=== PATIENT | female | born 1945 | race Caucasian/White ===

== ENCOUNTER → 2017-01-25 | Outpatient (CLI) | payer MEDICARE ==
--- NOTE | 2017-01-29 09:54 | MM ---
Reason for exam: screening (asymptomatic). Last mammogram was performed 1 year ago. History: Patient is postmenopausal. Benign MG stereo VAD BX LT of the left breast, August 17, 2014. Physical Findings: A clinical breast exam by your physician is recommended on an annual basis and results should be correlated with mammographic findings. MG 3D Screening Mammo W/Cad Bilateral CC and MLO view(s) were taken. Prior study comparison: January 24, 2016, bilateral MG 3d diag mammo w/cad JESUS. February 23, 2015, left breast MG diagnostic mammo LT w CAD. There are scattered fibroglandular densities. Previous mammotome biopsy within the left breast times 2. No significant changes when compared with prior studies. ASSESSMENT: Negative, BI-RAD 1 RECOMMENDATION: Routine screening mammogram of both breasts in 1 year.
== END ==
LOC: RADMAMWWP 08:09
PROVIDERS: ATTEND Family Medicine
DX: Z12.31 Encounter for screening mammogram for malignant neoplasm of breast (principal)
CPT/HCPCS: 77063; G0202

== ENCOUNTER → 2018-02-13 | Outpatient (CLI) | payer MEDICARE ==
--- NOTE | 2018-02-18 13:33 | MM ---
Reason for exam: screening (asymptomatic). Last mammogram was performed 1 year and 1 month ago. History: Patient is postmenopausal. Benign MG stereo VAD BX LT of the left breast, August 17, 2014. Physical Findings: A clinical breast exam by your physician is recommended on an annual basis and results should be correlated with mammographic findings. MG 3D Screening Mammo W/Cad Bilateral CC and MLO view(s) were taken. Prior study comparison: January 25, 2017, bilateral MG 3d screening mammo w/cad. January 24, 2016, bilateral MG 3d diag mammo w/cad JESUS. The breast tissue is heterogeneously dense. This may lower the sensitivity of mammography. Finding: There is a new 4 mm mass located 9 cm from the nipple in the lower quadrant, anterior position on ML view. Previous mammotome biopsy in the left breast x 2. New finding since January 25, 2017 and January 24, 2016. ASSESSMENT: Incomplete: need additional imaging evaluation, BI-RAD 0 RECOMMENDATION: Special view mammogram of the left breast. If lesion persists on supplemental views, image directed ultrasound is recommended. [facility] will attempt to contact patient to return for supplemental views and ultrasound if indicated.
== END | disposition home or self-care (01) ==
LOC: RADMAMWWP 14:55
PROVIDERS: ATTEND Family Medicine
DX: Z12.31 Encounter for screening mammogram for malignant neoplasm of breast (principal)
CPT/HCPCS: 77063; 77067

== ENCOUNTER → 2018-02-21 | Outpatient (CLI) | payer MEDICARE ==
--- NOTE | 2018-02-22 07:54 | MM ---
Reason for exam: additional evaluation requested from abnormal screening. Last mammogram was performed less than 1 month ago. History: Patient is postmenopausal. Benign MG stereo VAD BX LT of the left breast, August 17, 2014. Physical Findings: Nurse did not find any significant physical abnormalities on exam. MG 3D Work Up W/Cad LT LM and spot compression MLO view(s) were taken of the left breast. Prior study comparison: February 13, 2018, bilateral MG 3d screening mammo w/cad. January 25, 2017, bilateral MG 3d screening mammo w/cad. No distinct lesion persists on additional views. These results were verbally communicated with the patient and result sheet given to the patient on 02/21/18. ASSESSMENT: Benign, BI-RAD 2 RECOMMENDATION: Return to routine screening mammogram schedule for both breasts.
== END | disposition home or self-care (01) ==
LOC: RADMAMWWP 14:49
PROVIDERS: ATTEND Family Medicine
DX: R92.8 Other abnormal and inconclusive findings on diagnostic imaging of breast (principal)
CPT/HCPCS: 77065; G0279; 77061

== ENCOUNTER → 2018-05-17 | Outpatient (CLI) | payer MEDICARE, OTHER ==
--- NOTE | 2018-05-18 15:49 | MR ---
EXAMINATION TYPE: MR brain/cspine wo DATE OF EXAM: 05/17/2018 COMPARISON: 06/07/2012 HISTORY: Essential tremor / Cervicalgia CONTRAST: Performed utilizing mL intravenous gadolinium contrast. TECHNIQUE: Multiplanar, multiecho imaging on a 3.0 Jennie magnet is performed through the brain. Stud y is performed within 24 hours of arrival to the hospital. The craniovertebral junction is normal. The pituitary is normal. Diffusion-weighted imaging is performed. No abnormal hyperintensity is present to suggest an acute i ntracranial infarct or acute ischemic change. There is increased signal within the brainstem may be some microvascular ischemic type changes. This is greater within the brainstem than in the periventricular white matter. Findings were present previ ously with some progression over the interval. Ventricles and sulci are somewhat prominent for the patient age. No significant temporal horn dilat ation is evident. Internal auditory canals appear unremarkable. Cerebellar pontine angles are normal. Normal vascular f low voids are present. IMPRESSIONS: 1. Increasing microvascular ischemic type changes within the brainstem with some developing periventr icular white matter chronic appearing ischemic changes from 2011. EXAMINATION TYPE: MR brain/cspine wo DATE OF EXAM: 05/17/2018 COMPARISON: None HISTORY: Essential tremor / Cervicalgia CONTRAST: Performed utilizing 0 mL intravenous Gadavist gadolinium contrast. TECHNIQUE: Multiplanar multiecho imaging on a 3.0 Jennie magnet is performed through the cervical spin e. FINDINGS: The craniovertebral junction is normal. Vertebral body alignment is normal. C7-T1: No focal disc herniation or significant disc bulge is evident. No spinal canal stenosis or n eural foraminal stenosis is present. C6-7: Disc space narrowing is present C6-7. Some endplate disc bulge may have mild anterior thecal sa c flattening. This comes in close approximation with spinal cord. No spinal canal stenosis is present . Mild foraminal narrowing is present.. C5-6: There is mild disc bulge with anterior thecal sac flattening. No cord contact is evident. No sp inal canal stenosis present. Mild left foraminal narrowing is present. C4-5: Broad-based disc bulge is present. There is a small focal protrusion which has contact with the spinal cord. No spinal canal stenosis is present. Minimal signal change posterior to the C4 spinal c ord may be present. C3-4: Broad-based disc bulge is present. This slightly greater into the right paracentral region. Thi s has anterior thecal sac contact without cord compression. No spinal canal stenosis is present. Mild left foraminal narrowing is present.. C2-3: No focal disc herniation or significant disc bulge is evident. No spinal canal stenosis or juan ral foraminal stenosis is present. IMPRESSIONS: 1. 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 Signal abnormalities just proximal to this level is in the spina l cord on sagittal T2-weighted images. 2. Additional smaller disc bulges with anterior thecal sac contact. Some cord contact may be present or close approximation at C6-7.
== END | disposition home or self-care (01) ==
LOC: RADMRIMAIN 12:56
PROVIDERS: ATTEND Psychiatry & Neurology Neurology
DX: M50.221 Other cervical disc displacement at C4-C5 level (principal); I67.82 Cerebral ischemia
CPT/HCPCS: 70551; 72141

== ENCOUNTER → 2019-02-26 | Outpatient (CLI) | payer MEDICARE, OTHER ==
--- NOTE | 2019-02-26 14:25 | MM ---
Reason for exam: screening (asymptomatic). Last mammogram was performed 1 year ago. History: Patient is postmenopausal. Benign MG stereo VAD BX LT of the left breast, August 17, 2014. Physical Findings: A clinical breast exam by your physician is recommended on an annual basis and results should be correlated with mammographic findings. MG 3D Screening Mammo W/Cad Bilateral CC and MLO view(s) were taken. Prior study comparison: February 21, 2018, left breast MG 3d work up w/cad LT. February 13, 2018, bilateral MG 3d screening mammo w/cad. The breast tissue is heterogeneously dense. This may lower the sensitivity of mammography. Benign appearing bilateral calcifications. Previous mammotome biopsy in the left breast. No significant changes when compared with prior studies. ASSESSMENT: Benign, BI-RAD 2 RECOMMENDATION: Routine screening mammogram of both breasts in 1 year.
== END | disposition home or self-care (01) ==
LOC: RADMAMWWP 10:23
PROVIDERS: ATTEND Family Medicine
DX: Z12.31 Encounter for screening mammogram for malignant neoplasm of breast (principal)
CPT/HCPCS: 77063; 77067

== ENCOUNTER → 2020-02-26 | Outpatient (CLI) | payer MEDICARE, OTHER ==
--- NOTE | 2020-02-26 16:48 | CONS ---
CONSULTATION DATE OF SERVICE: 02/26/2020 A 74-year-old lady who has been evaluated in the [facility] for significant excessive daytime sleepiness. [place] Sleepiness Scale today is 23. HISTORY OF PRESENT ILLNESS/SLEEP-WAKE EVALUATION: Patient has history of obstructive sleep apnea for more than 10 years, did not have sleep study since that time. She continued to use her CPAP equipment, but even while using her CPAP, she continued to feel sleepy during the day. Her sleep schedule from 10 pm from 10 -:12 am. No problems with falling asleep, although she will watch TV in bedroom. She usually sleeps in the back and side position. She wakes up from sleep 2 times with one episode of nocturia. No history of hypnagogic hallucinations or sleep paralysis. In the morning, patient wakes up tired, has difficulties to pay attention, falling asleep during the day, has problems with memory, concentration, and depression. [place] Sleepiness Scale again is in extremely high range of 23. PAST MEDICAL HISTORY: Positive for acid reflux, hyperlipidemia, diabetes mellitus, depression, memory problems. PAST SURGICAL HISTORY: D and C. SOCIAL HISTORY: Negative for smoking or using alcohol. REVIEW OF SYSTEMS: Significant excessive daytime sleepiness. MEDICATIONS: Omeprazole, simvastatin, Amaryl, metformin, Synthroid, dicyclomine, Antivert, Metamucil, Claritin, Aricept, Prozac, Hyzaar, oxybutynin, Remidine, magnesium supplement, B12, Centrum Silver. PHYSICAL EXAM: lady without distress, BP 137/76, HR 78, RR 16, height 5, 1-1/2, weight 139, body mass index 27.6, temperature 98.1, oxygen saturation at room air 97%. Neck 15 inches in circumference. HEENT: PERRLA, EOMI, evaluation of oropharynx showed tongue protrudes midline. NECK: Supple, no JVD. Thyroid is not palpable. LUNGS: Clear to percussion and to auscultation. Good air exchange. No wheezing or rhonchi. HEART: S1, S2 regular. No murmurs, gallops, or rubs. ABDOMEN: Soft and nontender. Bowel sounds are present. No organomegaly appreciated. EXTREMITIES: No clubbing or cyanosis. PARTY CHIEF: Awake, alert, and oriented X3. Cranial nerves 2 to 7 intact. There is no fasciculation or atrophy. noted. No focal deficits observed. IMPRESSION: 1. Obstructive sleep apnea-hypopnea syndrome for more than 10 years. Patient continued to use his CPAP equipment but has symptoms of significant excessive daytime sleepiness during the day with [place] Sleepiness Scale in extremely high range of 23. 2. Differential diagnosis includes additional diagnosis of hypersomnia. 3. Diabetes mellitus. 4. Acid reflux. 5. Depression. 6. Hyperlipidemia. 7. Hypothyroidism. 8. Memory problems. PLAN: 1. We will repeat CPAP titration with the following: multiple sleep latency test on the following day for objective evaluation, patient has symptoms of excessive daytime sleepiness. 2. Sleep hygiene with regular time in bed for at least 7-1/2 - 8 hours. 3. No driving if feeling sleepiness. Thank you very much for allowing me to participate in the management of your patient. Sincerely, Shivam Baugh MD, PhD, FAASM Diplomat of [place] [employer] [place] [employer] [facility] [place] MMODL / IJN: [id number] /
== END | disposition home or self-care (01) ==
LOC: SLEEP 14:31
PROVIDERS: ATTEND Internal Medicine
DX: G47.33 Obstructive sleep apnea (adult) (pediatric) (principal); E11.9 Type 2 diabetes mellitus without complications; K21.9 Gastro-esophageal reflux disease without esophagitis; F32.9 Major depressive disorder, single episode, unspecified; E78.5 Hyperlipidemia, unspecified; E03.9 Hypothyroidism, unspecified; R41.3 Other amnesia; Z99.89 Dependence on other enabling machines and devices; Z79.82 Long term (current) use of aspirin; Z79.84 Long term (current) use of oral hypoglycemic drugs; Z79.899 Other long term (current) drug therapy
CPT/HCPCS: 99211

== ENCOUNTER → 2020-03-19 | Outpatient (CLI) | payer MEDICARE, OTHER ==
--- NOTE | 2020-03-22 09:32 | MM ---
Reason for exam: screening (asymptomatic). Last mammogram was performed 1 year and 1 month ago. History: Patient is postmenopausal. Benign MG stereo VAD BX LT of the left breast, August 17, 2014. Took hormonal contraceptives for 6 months. Physical Findings: A clinical breast exam by your physician is recommended on an annual basis and results should be correlated with mammographic findings. MG 3D Screening Mammo W/Cad Bilateral CC and MLO view(s) were taken. Prior study comparison: February 26, 2019, bilateral MG 3d screening mammo w/cad. February 21, 2018, left breast MG 3d work up w/cad LT. The breast tissue is heterogeneously dense. This may lower the sensitivity of mammography. No significant changes when compared with prior studies. ASSESSMENT: Benign, BI-RAD 2 RECOMMENDATION: Routine screening mammogram of both breasts in 1 year.
== END | disposition home or self-care (01) ==
LOC: RADMAMWWP 10:18
PROVIDERS: ATTEND Family Medicine
DX: Z12.31 Encounter for screening mammogram for malignant neoplasm of breast (principal)
CPT/HCPCS: 77063; 77067

== ENCOUNTER → 2021-04-13 | Outpatient (CLI) | payer MEDICARE, OTHER ==
--- NOTE | 2021-04-18 13:38 | MM ---
Reason for exam: screening (asymptomatic). Last mammogram was performed 1 year and 1 month ago. History: Patient is postmenopausal. Benign MG stereo VAD BX LT of the left breast, August 17, 2014. Took hormonal contraceptives for 6 months. Physical Findings: A clinical breast exam by your physician is recommended on an annual basis and results should be correlated with mammographic findings. MG 3D Screening Mammo W/Cad Bilateral CC and MLO view(s) were taken. Prior study comparison: March 19, 2020, bilateral MG 3d screening mammo w/cad. February 26, 2019, bilateral MG 3d screening mammo w/cad. The breast tissue is heterogeneously dense. This may lower the sensitivity of mammography. There are benign appearing round, linear, dystrophic calcifications bilaterally. Previous mammotome biopsy in the left breast x 2. There is no discrete abnormality. ASSESSMENT: Benign, BI-RAD 2 RECOMMENDATION: Routine screening mammogram of both breasts in 1 year.
== END | disposition home or self-care (01) ==
LOC: RADMAMWWP 15:45
PROVIDERS: ATTEND Family Medicine
DX: Z12.31 Encounter for screening mammogram for malignant neoplasm of breast (principal); Z78.0 Asymptomatic menopausal state; Z79.3 Long term (current) use of hormonal contraceptives
CPT/HCPCS: 77063; 77067

== ENCOUNTER → 2022-04-17 | Outpatient (CLI) | payer MEDICARE, OTHER ==
--- NOTE | 2022-04-18 17:21 | MM ---
Reason for Exam: Screening (asymptomatic). Last screening mammogram was performed 12 month(s) ago. Patient History: Menarche at age 13. First Full-Term at age 20. Postmenopausal. Hormonal Contraceptives for 6 months. 08/17/2014, Benign Core Biopsy on the left side. Risk Values: Lupe 5 year model risk: 1.5%. NCI Lifetime model risk: 3.3%. Prior Study Comparison: 02/26/2019 Bilateral Screening Mammogram, [facility]. 03/19/2020 Bilateral Screening Mammogram, [facility]. 04/13/2021 Bilateral Screening Mammogram, [facility]. Tissue Density: The breast tissue is heterogeneously dense. This may lower the sensitivity of mammography. Findings: Analyzed By CAD. 2 microclips left breast from prior biopsies. 2 areas of coarse calcifications medial posterior right breast appear new but appear dystrophic suggesting a benign etiology. Six-month follow-up recommended to reassess these calcifications. Otherwise, no significant change from prior exams. Overall Assessment: Probably benign, BI-RAD 3 Management: Diagnostic Mammogram of the right breast in 6 months. 1. Six-month follow-up diagnostic right breast mammogram for suspected new dystrophic calcifications which are generally benign. 2. Patient should continue monthly self breast exams. 3. This exam should not preclude additional follow-up of suspicious palpable abnormalities. Electronically signed and approved by: Emely Jones M.D. Radiologist
== END | disposition home or self-care (01) ==
LOC: RADMAMWWP 16:03
PROVIDERS: ATTEND Family Medicine
DX: Z12.31 Encounter for screening mammogram for malignant neoplasm of breast (principal); Z78.0 Asymptomatic menopausal state
CPT/HCPCS: 77063; 77067

== ENCOUNTER → 2023-04-13 | Outpatient (CLI) | payer MEDICARE ==
--- NOTE | 2023-04-16 16:06 | MM ---
Reason for Exam: Screening (asymptomatic). Last screening mammogram was performed 12 month(s) ago. Patient History: Menarche at age 13. First Full-Term at age 20. Postmenopausal. Hormonal Contraceptives for 6 months. 08/17/2014, Benign Core Biopsy on the left side. Risk Values: Lupe 5 year model risk: 1.5%. NCI Lifetime model risk: 3.1%. Prior Study Comparison: 04/13/2021 Bilateral Screening Mammogram, [facility]. 04/17/2022 Bilateral MG 3D screening mammo w/cad, [facility]. 10/23/2022 Right MG 3D diag mammo w/cad RT, [facility]. Tissue Density: The breast tissue is heterogeneously dense. This may lower the sensitivity of mammography. Findings: Analyzed By CAD. Pattern appears symmetrical and stable. Multiple scattered coarse and punctate calcifications are present. No significant interval change. No suspicious groups of microcalcifications, spiculated or lobular masses, architectural distortion or other secondary signs of malignancy are mammographically apparent. Overall Assessment: Benign, BI-RAD 2 Management: Screening Mammogram of both breasts in 1 year. A negative mammogram report should not preclude additional follow up of suspicious palpable abnormalities. Patient should continue monthly self breast exam. A clinical breast exam by your physician is recommended on an annual basis and results should be correlated with mammographic findings. Electronically signed and approved by: Anup Saldivar D.O. Radiologis
== END | disposition home or self-care (01) ==
LOC: RADMAMWWP 14:34
PROVIDERS: ATTEND Family Medicine
DX: Z12.31 Encounter for screening mammogram for malignant neoplasm of breast (principal); Z78.0 Asymptomatic menopausal state
CPT/HCPCS: 77063; 77067

== ENCOUNTER 2024-01-18 13:29 | Emergency (ER) | payer MEDICARE ==
--- NOTE | 2024-01-18 14:27 | ED ---
General Adult HPI - General Chief complaint: Extremity Injury, Lower Stated complaint: Back pain Time Seen by Provider: 01/18/24 14:26 Source: patient, family, RN notes reviewed Mode of arrival: ambulatory Limitations: no limitations - History of Present Illness Initial comments: 78-year-old female presented to the ER with a chief complaint of left-sided back pain. She states this been ongoing since right before . She describes it as left-sided rib pain. She states that it is worse when touched. She describes it as a constant pain with intermittent sharp stabs. Denies any rashes, injuries, trauma, or physical activity out of the norm. Denies any known cardiac history, shortness of breath, chest pain, palpitations, abdominal pain or peripheral edema. - Related Data Previous Rx's Medication Instructions Recorded Lidocaine 5% Patch [Lidoderm 5% 1 patch TOPICAL DAILY #10 patch 01/18/24 Patch] predniSONE 50 mg PO DAILY #5 tab 01/18/24 Allergies Allergy/AdvReac Type Severity Reaction Status Date / Time Sulfa (Sulfonamide Allergy Rash/Hives Verified 01/18/24 14:00 Antibiotics) VICENTE Inhibitors AdvReac Cough Verified 01/18/24 14:01 Review of Systems ROS Statement: Those systems with pertinent positive or pertinent negative responses have been documented in the HPI. ROS Other: All systems not noted in ROS Statement are negative. Past Medical History Past Medical History: Asthma, Diabetes Mellitus, GERD/Reflux, Hyperlipidemia, Hypertension, Thyroid Disorder History of Any Multi-Drug Resistant Organisms: None Reported Additional Past Surgical History / Comment(s): D&C Past Psychological History: Depression Smoking Status: Never smoker Past Alcohol Use History: None Reported Past Drug Use History: None Reported General Exam Limitations: no limitations General appearance: alert, in no apparent distress Head exam: Present: atraumatic, normocephalic, normal inspection Neck exam: Present: normal inspection. Absent: tenderness, meningismus, lymphadenopathy Respiratory exam: Present: normal lung sounds bilaterally. Absent: respiratory distress, wheezes, rales, rhonchi, stridor Cardiovascular Exam: Present: regular rate, normal rhythm, normal heart sounds. Absent: systolic murmur, diastolic murmur, rubs, gallop, clicks Back exam: Present: tenderness (Left ribs exquisitely tender. No rashes, erythema or contusions.) Neurological exam: Present: alert, oriented X3, CN II-XII intact Skin exam: Present: warm, dry, intact, normal color. Absent: rash Course Vital Signs 01/18/24 01/18/24 13:52 16:26 Temperature 98.3 F 98.7 F Pulse Rate 69 72 Respiratory 18 16 Rate Blood Pressure 146/74 153/69 O2 Sat by Pulse 98 99 Oximetry Medical Decision Making - Medical Decision Making Was pt. sent in by a medical professional or institution (, PA, [employer], urgent care, hospital, or penitentiary...) When possible be specific @ -No Did you speak to anyone other than the patient for history (EMS, parent, family, police, friend...)? What history was obtained from this source @ -No Did you review nursing and triage notes (agree or disagree)? Why? @ -I reviewed and agree with nursing and triage notes Were old charts reviewed (outside hosp., previous admission, EMS record, old EKG, old radiological studies, urgent care reports/EKG's, penitentiary records)? Report findings @ -No old charts were reviewed Differential Diagnosis (chest pain, altered mental status, abdominal pain women, abdominal pain men, vaginal bleeding, weakness, fever, dyspnea, syncope, headache, dizziness, GI bleed, back pain, seizure, CVA, palpatations, mental health, musculoskeletal)? @ -Differential Back Pain:Strain, zoster, cauda equina syndrome, epidural abscess, vertebral osteomyelitis, discitis, fracture, subluxation, disc herniation, DJD, spinal stenosis, dissection, AAA, pancreatitis, peptic ulcer disease, pyelonephritis, kidney stone, this is not meant to be an all-inclusive list. EKG interpreted by me (3pts min.). @ -None X-rays interpreted by me (1pt min.). @ -Left ribs AP chest x-ray interpreted by me negative for acute process. Thoracic spine x-ray significant for scoliosis no acute findings. CT interpreted by me (1pt min.). @ -None done U/S interpreted by me (1pt. min.). @ -None done What testing was considered but not performed or refused? (CT, X-rays, U/S, labs)? Why? @ -None What meds were considered but not given or refused? Why? @ -None Did you discuss the management of the patient with other professionals (professionals i.e. , PA, [employer], lab, RT, psych nurse, foster care social worker, parking cashier, teacher, contracting officer, wrapper caser)? Give summary @ -No Was smoking cessation discussed for >3mins.? @ -No Was critical care preformed (if so, how long)? @ -No Were there social determinants of health that impacted care today? How? (Homelessness, low income, unemployed, alcoholism, drug addiction, transportation, low edu. Level, literacy, decrease access to med. care, mcc, rehab)? @ -No Was there de-escalation of care discussed even if they declined (Discuss DNR or withdrawal of care, Hospice)? DNR status @ -No What co-morbidities impacted this encounter? (DM, HTN, Smoking, COPD, CAD, Cancer, CVA, ARF, Chemo, Hep., AIDS, mental health diagnosis, sleep apnea, morbid obesity)? @ -None Was patient admitted / discharged? Hospital course, mention meds given and route, prescriptions, significant lab abnormalities, going to OR and other pertinent info. @ -Discharge. 78-year-old female presented to the ER with a chief complaint of left-sided rib pain. History and physical exam completed. Vitals stable. Patient in no signs acute distress and nontoxic-appearing. Lung sounds clear to auscultation bilaterally. Patient is exquisitely tender to left rib palpitation. Appropriate chest wall motion with respirations. No evidence of erythema, rash or contusions. X-rays obtained negative for acute process. Patient received by mouth Tylenol for symptom control in the ER. Patient also had lidocaine patch placed. Due to tenderness on palpitation, no other associated symptoms, and x-ray findings, it is believed pain is due to musculoskeletal pain. Results discussed with patient, all questions answered. Upon reevaluation, patient resting comfortably in exam room in no signs of acute distress. Patient eagerly awaiting discharge. Lidocaine patches and prednisone prescribed. Return parameters discussed. Patient discharged in stable condition with follow-up to PCP. Patient verbally expressed understanding and agreement with care plan. Case discussed with ED attending, Dr. Sr. Undiagnosed new problem with uncertain prognosis? @ -No Drug Therapy requiring intensive monitoring for toxicity (Heparin, Nitro, Insulin, Cardizem)? @ -No Were any procedures done? @ -No Diagnosis/symptom? @ -Musculoskeletal pain Acute, or Chronic, or Acute on Chronic? @ -Acute Uncomplicated (without systemic symptoms) or Complicated (systemic symptoms)? @ -Uncomplicated Side effects of treatment? @ -No Exacerbation, Progression, or Severe Exacerbation? @ -No Poses a threat to life or bodily function? How? (Chest pain, [place], [place], pneumonia, PE, COPD, DKA, ARF, appy, cholecystitis, CVA, Diverticulitis, Homicidal, Suicidal, threat to staff... and all critical care pts) @ -No - Radiology Data Radiology results: report reviewed, image reviewed Disposition Clinical Impression: Musculoskeletal pain Disposition: HOME SELF-CARE Condition: Stable Instructions (If sedation given, give patient instructions): Musculoskeletal Pain (ED) Additional Instructions: Take prednisone for 5 days. Continue to take [id number] Tylenol and Motrin for pain control. Please follow-up with orthopedic doctor if symptoms persist. Also follow-up with PCP next 1 to 2 days. Return to the ER for any new or worsening concerns. Prescriptions: Lidocaine 5% Patch [Lidoderm 5% Patch] 1 patch TOPICAL DAILY #10 patch predniSONE 50 mg PO DAILY #5 tab Is patient prescribed a controlled substance at d/c from ED?: No Referrals: Puneet Obrien MD [Primary Care Provider] - 1-2 days Raymon Zuñiga DO [Doctor of Osteopathic Medicine] - 1-2 days Time of Disposition: 16:02
--- NOTE | 2024-01-18 15:34 | XR ---
PA chest and left ribs. HISTORY: Left chest pain. COMPARISON: None. TECHNIQUE: PA view the chest and 4 views left ribs were obtained. FINDINGS: The lungs are clear and there is no airspace consolidation or abnormal interstitial opacity. There is no pleural effusion or pneumothorax. The heart and pulmonary vasculature are normal. The osseous structures including the left ribs are intact. IMPRESSION: No significant abnormality seen
--- NOTE | 2024-01-18 15:35 | XR ---
Thoracic spine. HISTORY: Chest pain COMPARISON: None. TECHNIQUE: 3 views of the thoracic spine were obtained FINDINGS: There is moderate dextroscoliosis of the thoracolumbar spine. The thoracic vertebral segments are normal in height and alignment there is no fracture or subluxatio n Paraspinal soft tissues are unremarkable. IMPRESSION: Scoliosis but no acute abnormality of the thoracic spine.
[2024-01-18] MEDS: ACETAMINOPHEN TAB 325 MG TAB PO STA (16:14)
[2024-01-18] MEDS: LIDOCAINE 4% PATCH TOPICAL ONE (16:15)
[2024-01-18 16:34] VITALS: BP 153/69; PULSE 72; RESP 16; TEMP 98.7
== END 2024-01-18 16:27 | disposition home or self-care (01) ==
LOC: SUPCPDRO 13:29 → EC 13:29
DX: R07.81 Pleurodynia (principal); Z88.2 Allergy status to sulfonamides; Z88.8 Allergy status to other drugs, medicaments and biological substances
CPT/HCPCS: 72070; 99283

== ENCOUNTER → 2024-04-22 | Outpatient (CLI) | payer MEDICARE ==
--- NOTE | 2024-05-14 14:59 | MM ---
Reason for Exam: Screening (asymptomatic). Last screening mammogram was performed 12 month(s) ago. Patient History: Menarche at age 13. First Full-Term at age 20. Postmenopausal. Hormonal Contraceptives for 6 months. 08/17/2014, Benign Core Biopsy on the left side. Risk Values: Lupe 5 year model risk: 1.5%. NCI Lifetime model risk: 2.9%. Prior Study Comparison: 04/17/2022 Bilateral MG 3D screening mammo w/cad, [facility]. 10/23/2022 Right MG 3D diag mammo w/cad RT, [facility]. 04/13/2023 Bilateral MG 3D screening mammo w/cad, [facility]. Tissue Density: The breasts are heterogeneously dense, which may obscure small masses. Findings: Analyzed By CAD. Right breast: There is no suspicious group of microcalcifications or new suspicious mass. Benign-appearing calcifications right breast. Left breast: There is no suspicious group of microcalcifications or new suspicious mass. Benign-appearing calcifications left breast. Overall Assessment: Benign, BI-RAD 2 Management: Screening Mammogram of both breasts in [address] [facility] will attempt to contact patient to return for supplemental views and ultrasound if indicated. Patient should continue monthly self-breast exams. A clinical breast exam by your physician is recommended on an annual basis. This exam should not preclude additional follow-up of suspicious palpable abnormalities. Note on Lupe scores and lifetime risk: 1. A Lupe score greater than 3% is considered moderate risk. If this is the case, consider specialist referral to assess eligibility for a risk reducing agent. 2. If overall lifetime risk for the development of breast cancer is 20% or higher, the patient may qualify for future screening with alternating mammogram and breast MRI. Electronically signed and approved by: Peterson Friedman DO
== END | disposition home or self-care (01) ==
LOC: RADMAMWWP 12:00
PROVIDERS: ATTEND Family Medicine
DX: Z12.31 Encounter for screening mammogram for malignant neoplasm of breast
CPT/HCPCS: 77063; 77067